=== PATIENT | male | born 1965 | race American Indian/Alaskan Native ===

== ENCOUNTER 2017-05-07 16:42 | Inpatient (IN) | payer MEDICARE, MEDICAID ==
[2017-05-07 17:04] VITALS: BMI 42.5
[2017-05-07] MEDS ORDERED: Magnesium Hydroxide Susp 30 ml UD PO PRN (17:36)
[2017-05-07] MEDS ORDERED: Alum-Mag Hydrox-Simethicone Susp (30 mL) PO PRN (17:36)
[2017-05-07] MEDS ORDERED: DiphenhydrAMINE 50 mg/ml Inj IM PRN (17:42)
[2017-05-07] MEDS: Clotrimazole 1% Cream(30 gm) TOP SCH (19:51)
[2017-05-08 07:34] VITALS: BP 130/70; PULSE 94; RESP 22
--- NOTE | 2017-05-08 07:37 | PCM.BM ---
Treatment assets and liabiliti Patient Assests: adapts well, cooperative, ADL independent, negotiates basic needs
--- NOTE | 2017-05-08 07:38 | PCM.BM ---
Treatment assets and liabiliti Patient Assests: adapts well, cooperative, ADL independent, negotiates basic needs Patient Liabilities: poor support system, relationship conflicts, substance abuse, medical problems, legal issue - Diagnosis (1) Aggression Status: Acute - Milieu Protocol Maintain good personal hygiene: daily Encourage regular showers, daily Remind patient to perform daily oral care Maintain personal safety: every shift Educate patient to report safety concerns to staff, every shift Monitor environment for contraband/sharps Medication safety: Monitor for expected outcome, potential side effects: every shift, Assess barriers to learning: every shift, Assess readiness for medication education: every shift Discharge/Continuing Care - Education Needs Education Needs: Family Medication, Family Diagnosis/Disease Process, Family Coping Skills, Family Community resources, Patient Medication, Patient Diagnosis /Disease Process, Patient Coping Skills, Patient Anger Management skills, Patient Placement options, Patient Community resources, Patient Activities of Daily Living, Patient Aftercare Safety Plan
[2017-05-08] MEDS ORDERED: Metoprolol Succinate 25 mg XL Tab PO SCH (08:00)
[2017-05-08 08:58] VITALS: TEMP 97.2
--- NOTE | 2017-05-08 09:47 | PCM.PSYCH ---
Initial Psychiatric Evaluation - Initial Psychiatric Evaluation Type of Admission: Voluntary Legal Status: Capacity History of Present Illness and Precipitating Events: Patient is a single 51 year old single, homeless, unemployed, male with a hx of Bipolar I Disorder, MXD, r/o Borderline personality disorder, r/o antisocial personality disorder, opioid use disorder and alcohol use disorder, multiple prior admissions and reported SA who was admitted for treatment of depression and suicidal thoughts. Please note the patient was initially stabilized on the medical floor overnight prior to transfer to the psychiatric unit for treatment. Patient has been difficult to manage on the medical floor as well as the psychiatric unit. He is entitled and threatening when demands are not met. He paces the unit aggressively and menacingly. Patient's behavior last night has caused fear among a number of other patients on the unit. He has required medication PRN to help him calm down and police were almost called in this respect. When patient learned that he would not be provided methadone and Xanax on the unit he put in a 48 hour letter. It is worth noting the patient was hospitalized [facility] earlier this year and was arrested after discharge for making threats to kill a doctor on the unit. I met with patient in the morning and presently he is in better control this morning though still appears hyper and anxious. He indicates some improvement in mood and does not have any depression and suicidal thoughts. Indicates that he never had any homicidal thoughts. Patient reports that he wanted methadone for his back pain and denies that he is in opiate withdrawal. Patient also denies drinking any alcohol prior to admission. Indicates that he is no longer hallucinating and again requested to be discharged. Patient remains superficially pleasant and cooperative throughout my questioning and is able to joke at times with this provider. Nonetheless it is worth noting that his thought process is tangential and overinclusive. Speech is rapid but not pressured. [facility] records indicate the patient had similar behaviors on their unit a few days ago. Patient was agitated, aggressive and intimidating other patients. Generally demanding, entitled and manipulative. Patient appeared to have minimal motivation to change and demanded (AMA) discharge. Psych hx: Multiple admissions and reported suicide attempts. ~Most recently patient was discharged AMA from [facility] 04/29/17-05/02/17 ~Also hospitalized at [facility] 04/09/17-04/14/17 Discharge medications included: Gabapentin 300 mg PO TID Lisinopril 40 mg PO DAILY metformin1,000 mg PO BID [id number] mg PO HS [id number] mg PO HS Discharge diagnosis included Borderline Personality d/o r/o Antisocial Pers. 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 Family psych hx: Mother had depression Social hx: Patient was born and raised in [place]. He is single and has one 23 yo daughter who overdosed on heroin approximately 128 days ago while in [place]. [facility] Records indicate that she overdosed in 2014 Patient graduate high school and attended one year at [employer]. 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 He reports that he lives with a roommate though [facility] Records indicate he is homeless. Patient reports multiple arrests including DUI as well as forgery at the age of 17 in which he spent five months at [facility]. Patient was recently in the newspaper for threatening to shoot a doctor at [facility]. He was arrested but not charged. Patient reports he still has a court date on 06/18/17. Patient is presently minimizing his substance use. Indicates most recent use of heroin was "last Tuesday" (approximately 5 days ago on 05/03). Denies any other drug use or alcohol use since discharge from [facility] on . [facility] records indicate the following history of patient's substance use: Heroin - 15-30 bags daily, starting in 2014 Alcohol - Started drinking at 7 years of age and progressed to drink 750ml of Vodka daily, last use 04/28. Marijuana - 1 quarter ounce weekly, last use this month. Cocaine - 3 1/2 grams weekly, last use this month. Current Medications: Active Medications Generic Name Dose Route Start Last Admin Trade Name Freq PRN Reason Stop Dose Admin Acetaminophen 650 mg 05/07/17 17:36 Tylenol 325mg Tab PO Q4 PRN Pain, moderate (4-7) Al Hydrox/Mg Hydrox/Simethicone 30 ml 05/07/17 17:36 Maalox Plus 30 Ml PO DAILY PRN Upset Stomach Atorvastatin Calcium 80 mg 05/07/17 22:00 05/07/17 22:18 Lipitor PO 80 mg HS RUBEN Administration Clonazepam 1 mg 05/07/17 18:00 05/07/17 18:15 Klonopin PO 1 mg TID [facility] Administration Protocol Clopidogrel Bisulfate 75 mg 05/08/17 08:00 Plavix PO DAILY [facility] Clotrimazole 1 gm 05/07/17 18:30 05/07/17 19:51 Lotrimin 1% TOP 1 applic BID RUBEN Administration Diphenhydramine HCl 25 mg 05/07/17 17:42 05/07/17 19:45 Benadryl IM 25 mg Q6H PRN Administration Agitation Diphenhydramine HCl 50 mg 05/07/17 17:44 05/07/17 18:20 Benadryl PO 50 mg Q6H PRN Administration Anxiety Duloxetine HCl 20 mg 05/08/17 08:00 Cymbalta PO DAILY [facility] Furosemide 40 mg 05/08/17 08:00 Lasix PO DAILY [facility] Gabapentin 600 mg 05/07/17 18:00 05/07/17 18:15 Neurontin PO 600 mg TID [facility] Administration Protocol Haloperidol Lactate 5 mg 05/07/17 17:49 05/07/17 19:45 Haldol IM 5 mg Q6H PRN Administration Agitation Protocol Magnesium Hydroxide 30 ml 05/07/17 17:36 Milk Of Magnesia PO DAILY PRN Constipation Metformin HCl 1,000 mg 05/08/17 08:00 Glucophage PO BID [facility] Metoprolol Succinate 25 mg 05/08/17 08:00 Toprol Xl PO BRK RUBEN Mirtazapine 30 mg 05/07/17 22:00 05/08/17 01:10 Remeron PO Not Given HS [facility] Ziprasidone 20 mg 05/08/17 08:00 Geodon Cap PO BID [facility] Protocol Ziprasidone 20 mg 05/07/17 17:47 05/07/17 19:45 Geodon Inj IM 20 mg Q6H PRN Administration Agitation Protocol Past Psychiatric History - Past Psychiatric History Pertinent Medical Hx (Current Medical&Sleep Prob, Allergies): Allergies Allergy/AdvReac Type Severity Reaction Status Date / Time chlorpromazine Allergy Severe THROAT Verified 04/15/17 07:10 [From Thorazine] SWEELS ibuprofen [From Motrin] Allergy Severe INTERNAL Verified 04/15/17 07:10 BLEEDING nitroglycerin Allergy Severe INTERNAL Verified 04/15/17 07:10 BLEEDING penicillin G Allergy Mild PALPITATION Verified 04/15/17 07:10 acetaminophen [From Tylenol] Allergy CRAMPS Verified 04/15/17 07:10 divalproex sodium Allergy SEIZURE Verified 04/15/17 07:10 [From Depakote] ketorolac [From Toradol] AdvReac INTERNAL Verified 04/15/17 07:10 BLEEDING Clopidogrel [Plavix] 75 mg PO DAILY 04/09/17 Gabapentin [Gralise] 300 mg PO TID 04/09/17 Metoprolol Succinate [Toprol XL] 25 mg PO DAILY 04/09/17 Mirtazapine [Remeron] 15 mg PO HS 04/09/17 Aspirin [Ecotrin] 81 mg PO DAILY #30 04/14/17 Clotrimazole 1% Cream [Lotrimin 1%] 1 gm TOP BID #1 04/14/17 Furosemide [Lasix] 20 mg PO DAILY 30 Days 04/14/17 Gabapentin [Neurontin] 300 mg PO TID #90 cap 04/14/17 Lisinopril [Zestril] 40 mg PO DAILY #30 tab 04/14/17 Mirtazapine [Remeron Soltab] 15 mg PO HS 30 Days 04/14/17 QUEtiapine [SEROquel] 100 mg PO HS #30 tab 04/14/17 Rosuvastatin Calcium [Crestor] 10 mg PO HS #30 tab 04/14/17 diltiaZEM [Cardizem] 30 mg PO Q8H 30 Days 04/14/17 metFORMIN [glucOPHAGE] 1,000 mg PO BID #30 tab 04/14/17 Mental Status Examination - Affect Affect: Broad - Motor Activity Motor Activity: Psychomotor Agitation - Reliability in Providing Information Reliability in Providing Information: Fair - Speech Speech: Tangential - Mood Mood: Anxious - Formal Thought Process Formal Thought Process: Other (Overinclusive) - Obsessions/Compulsions Obsessions: No Compulsions: No - Cognitive Functions Orientation: Person, Place, Situation Sensorium: Alert Attention/Concentration: Attentive Estimate of Intelligence: Average Judgement: Imparied, as evidence by: Lack of insight into illness DSM 5 DX - DSM 5 DSM 5 Diagnosis: Bipolar Disorder mixed r/o Borderline Personality d/o r/o Antisocial Personality. d/o Cocaine use disorder moderate Opioid use disorder severe Alcohol use disorder severe - Recommended/Plan of Treatment Treatment Recommendations and Plan of Treatment: * group, milieu and supportive tx * Requested [facility] screening, patient put in a 48 hour letter on 05/07/17 * klonopin 1 mg po TID for anxiety and mood control * Remeron 30 mg HS for depression and off-label for sleep * d/c cymbalta, initiate tegretol 100 mg po TID for mood stabilization * c/w geodon 20 mg po bid for disorganization, hallucinations mood stabilization * Awaiting medical f/u * Vitals reviewed and noted below: Selected Entries 05/08/17 05/08/17 05/08/17 07:33 08:47 08:48 Temperature 98.2 F Pulse Rate 94 H 94 H Respiratory 22 Rate Blood Pressure 130/70 130/70 130/70 05/08/17 08:54 Temperature 97.2 F L Pulse Rate Respiratory Rate Blood Pressure ADMISSION LABS 05/04/17 05/04/17 05/04/17 06:45 07:42 08:37 WBC 8.3 RBC 3.66 L Hgb 9.9 L Hct 30.7 L MCV 83.9 MCH 27.2 MCHC 32.4 L Plt Count 208 MPV 8.5 Neut % (Auto) 71.7 Lymph % (Auto) 19.8 L [place] % (Auto) 7.5 Eos % (Auto) 0.3 Baso % (Auto) 0.7 Neut # 5.9 Lymph # 1.6 [place] # 0.6 Eos # 0.0 Baso # 0.1 Sodium 135 Potassium 4.3 Chloride 99 Carbon Dioxide 24 Anion Gap 16 BUN 17 Creatinine 1.1 Est GFR ( Amer) > 60 Random Glucose 160 H Calcium 8.1 L Total Bilirubin 0.6 AST 35 ALT 31 Alkaline Phosphatase 43 Total Protein 6.0 L Albumin 2.9 L D Globulin 3.1 Albumin/Globulin Ratio 0.9 L Urine Opiates Screen Positive Urine Methadone Screen Positive Ur Barbiturates Screen Negative Ur Phencyclidine Scrn Positive Ur Amphetamines Screen Negative U Benzodiazepines Scrn Positive U Oth Cocaine Metabols Positive U Cannabinoids Screen Negative Alcohol, Quantitative < 10
[2017-05-08] MEDS: Clotrimazole 1% Cream(30 gm) TOP SCH (09:58)
--- NOTE | 2017-05-08 15:28 | PN ---
DATE: 05/08/2017 SUBJECTIVE: He was just in the hospital, getting checked out for chest pain and rule out stroke, did very well with his test. He is now back on psychiatric floor and he tells me he is signing out AMA today. He is feeling well. He tells me the skin cream helped him a lot and the fungus is going away. He had multiple problems while he was here, he was depressed. He had a fungal skin infection, suicidal, high cholesterol, hypertension, bipolar, he had chest pain, chronic pain. He is looking for pain medications. Bottom line, he is feeling much better today and he is signing out AMA. He is on Benadryl, Geodon, Glucophage, Haldol, Klonopin, Lasix, Lipitor, Lotrimin cream, MiraLAX, milk of magnesia, Neurontin, Plavix, Remeron, Tegretol, Toprol and Tylenol. PHYSICAL EXAMINATION: VITAL SIGNS: He has a 97.2 temperature, 94 pulse, 130/72 blood pressure, 22 respiratory rate. HEENT: His head is atraumatic, normocephalic. HEART: Regular rate. LUNGS: Clear to auscultation. ABDOMEN: Soft, morbidly obese. EXTREMITIES: No edema. SKIN: Healing from a fungal skin infection. LABORATORY DATA: He had an 184 of sugar. ASSESSMENT AND PLAN: To continue with treatment as per Psychiatry unless he has signed the AMA. I will give him some cream for his skin. Dale Melo DO
--- NOTE | 2017-05-09 08:52 | PCM.PYCHDC ---
Mental Status Examination - Mental Status Examination Orientation: Person, Place, Situation, Time Memory: Intact Mood: Neutral Affect: Constricted Attention: WNL Concentration: WNL Association: WNL Fund of Knowledge: WNL Formal Thought Process: No Impairment, Other (but pt grandiouse) Description of patient's judgement and insight: improved but still limited Psychotic Thoughts and Behaviors: denied, pt is not acutely psychotic, denied v/a/t hallucinations, denied paranoid ideation Suicidal Ideation: No Current Homicidal Ideation?: No Plan: pt adamantly denied thoughts of harming self or others denied intent or plan. Discharge Summary - Discharge Note Reason for Hospitalization: depressive symptoms, possible suicidal ideation Psychiatric History (includes Medical, Family, Personal Hx): see HPI Laboratory Data: Abnormal Lab Results 05/08/17 11:00 POC Glucose (mg/dL) 165 H Consultations:: List each consultation separately and include: 1. Reason for request. 2. Findings. 3. Follow-up Consultations: medical consult appreciated, see note for more detailed information Summary of Hospital Course include:: 1. Description of specific treatment plan utilized for patients during their course of treatmen. 2. Summarize the time- course for resolution of acute symptoms and/or regressed behaviors. 3. Describe issues identified and worked on during hospitalization. 4. Describe medication utilized. 5. Describe medical problems identified and treated. 6. Reassessment of suicide risk Summary of Hospital Course: shortly pt was transferred from the [facility] for evaluation of depressive symptoms and possible suicidal ideation, after what pt was transferred to the medical floor for evaluation of possible stroke, pt was medically stable and was transferred back to the psychiatric inpatient unit where pt signed 48hr notice, [facility] found pt to be NOT committable, pt was d/c AMA. as per 's note: Patient is a single 51 year old single, homeless, unemployed, male with a hx of Bipolar I Disorder, MXD, r/o Borderline personality disorder, r/o antisocial personality disorder, opioid use disorder and alcohol use disorder, multiple prior admissions and reported SA who was admitted for treatment of depression and suicidal thoughts. Please note the patient was initially stabilized on the medical floor overnight prior to transfer to the psychiatric unit for treatment. Patient has been difficult to manage on the medical floor as well as the psychiatric unit. He is entitled and threatening when demands are not met. He paces the unit aggressively and menacingly. Patient's behavior last night has caused fear among a number of other patients on the unit. He has required medication PRN to help him calm down and police were almost called in this respect. When patient learned that he would not be provided methadone and Xanax on the unit he put in a 48 hour letter. It is worth noting the patient was hospitalized [facility] earlier this year and was arrested after discharge for making threats to kill a doctor on the unit. met with patient at the morning pt presented to be in better control though still appears hyper and anxious, pt indicated some improvement in mood and denied any depression and suicidal thoughts. Indicates that he never had any homicidal thoughts. Patient wanted methadone for his back pain and denies that he is in opiate withdrawal. [facility] records indicate the patient had similar behaviors on their unit a few days ago. Patient was agitated, aggressive and intimidating other patients. Generally demanding, entitled and manipulative. Patient appeared to have minimal motivation to change and demanded (AMA) discharge. pt was screened by [facility], was found to be not committable pt was d/c AMA - Diagnosis (1) Antisocial personality disorder Status: Acute (2) Bipolar affective disorder, mixed, severe, with psychotic behavior Status: Chronic Priority: Medium (3) Opioid use disorder, severe, dependence Status: Chronic Priority: Low (4) Polysubstance abuse Status: Chronic Priority: Medium - Final Diagnosis (DSM 5) Condition upon Discharge: GOOD Disposition: AGAINST MEDICAL ADVICE Follow-up Treatment Plan: pt was provided with info about [facility], see SW note for more detailed info. Pt was educated by about safety plan in case of worsening of symptoms or in case of suicidal or homicidal ideation call 911 or go to the nearest ER, also was educated to take meds as prescribed and stay away from drugs, pt verbalized understanding. - Smoking Cessation Smoking Cessation Medication prescribed: Yes - Antipsychotic Medications Pt discharged on 2 or more routine antipsychotic medications: No
== END 2017-05-08 15:05 | disposition left against medical advice (07) | DRG 885 ==
LOC: PSYC 16:42
PROVIDERS: ADMIT Psychiatry & Neurology Psychiatry; ATTEND Psychiatry & Neurology Psychiatry
PROC: GZ3ZZZZ Medication Management (ICD-10-PCS; principal; 2017-05-07)
DX: F31.64 Bipolar disorder, current episode mixed, severe, with psychotic features (principal); F60.2 Antisocial personality disorder; F11.20 Opioid dependence, uncomplicated; I10 Essential (primary) hypertension; F14.10 Cocaine abuse, uncomplicated; G89.29 Other chronic pain; R07.9 Chest pain, unspecified; E78.00 Pure hypercholesterolemia, unspecified; B36.9 Superficial mycosis, unspecified; Z59.0 Homelessness; Z81.8 Family history of other mental and behavioral disorders